=== PATIENT | female | born 1955 | race Caucasian/White ===

== ENCOUNTER → 2018-10-12 | Outpatient (CLI) | payer BC, OTHER ==
[~2018-10-12] MED LIST: ASPIRIN325 PO; CIPRO500 MG PO; FAMCICLOVIR500 MG PO; FLAGYL500 MG PO; HYDROCODONE-AP1 EAC6 PO; LISINOPRIL10 MG PO; ZOLOFT25 MG PO
== END ==
LOC: RAD 07:52
DX: Z12.31 Encounter for screening mammogram for malignant neoplasm of breast (principal)

== ENCOUNTER → 2018-10-17 | Outpatient (CLI) | payer BC | LOC: BC 01:17 | DX: N60.01 Solitary cyst of right breast (principal) ==

== ENCOUNTER → 2019-04-19 | Outpatient (CLI) | payer BC | LOC: ULTRA 14:04 | DX: M79.89 Other specified soft tissue disorders (principal); R60.0 Localized edema ==

== ENCOUNTER → 2019-04-23 | Outpatient (CLI) | payer BC | LOC: RAD 13:14 | DX: M79.672 Pain in left foot (principal); M79.89 Other specified soft tissue disorders ==

== ENCOUNTER → 2019-12-16 | Outpatient (CLI) | payer BC, OTHER | LOC: RAD 08:08 | DX: N64.4 Mastodynia (principal); Z87.898 Personal history of other specified conditions ==

== ENCOUNTER → 2021-02-04 | Outpatient (CLI) | payer BC, OTHER ==
--- NOTE | 2021-02-04 11:04 | 2DMMODE ---
[facility] [place] [address] 2 D/M-MODE ECHOCARDIOGRAM Name: VIRI COREY Room #: REG [facility]#: [id number] Admission: 02/04/21 Attend Phys: Audelia Virk MD Discharge: Date of : 55 Report #: [id number] THIS REPORT FOR: cc: William Barrera MD, Neal A. MD Lundgren, Craig H. MD [facility] ~ APPROVED REPORT Study performed: 02/04/2021 10:01:08 EXAM: Comprehensive 2D, Doppler, and color-flow Echocardiogram Patient Location: Out-Patient Status: routine BSA: 1.79 HR: 56 bpm BP: 100/50 mmHg Rhythm: NSR Other Information Study Quality: Fair Technically limited study due to off axis windows/body habitus. Indications Non-ischemic cardiomyopathy. Hx: HTN. 2D Dimensions RVDd: 27.98 mm IVSd: 7.71 (7-11mm) LVOT Diam: 21.35 (18-24mm) LVDd: 59.06 mm PWd: 8.61 (7-11mm) Ascending Ao: 35.53 (22-36mm) LVDs: 44.75 (25-40mm) Left Atrium: 30.04 (27-40mm) Aortic Root: 28.06 mm Volumes Left Atrial Volume (Systole) Single Plane 4CH: 66.44 mL Aortic Valve AoV Peak Bayron.: 2.07 m/s AO Peak Gr.: 17.20 mmHg LVOT Max P.95 mmHg [facility] [address] [place] [address] 2 D/M-MODE ECHOCARDIOGRAM Name: VIRI COREY Room #: REG [facility]#: [id number] Admission: 02/04/21 Attend Phys: Audelia Virk, Discharge: Date of : 55 Report #: [id number] AO Mean Gr.: 9.44 mmHg AO V2 Mean: 1.46 m/s LVOT Max V: 0.99 m/s AO V2 VTI: 47.11 cm BEKCI Vmax: 1.71 cm2 Mitral Valve E/A Ratio: 1.8 MV Decel. Time: 156.03 ms MV E Max Bayron.: 0.82 m/s MV A Bayron.: 0.46 m/s MV PHT: 45.25 ms IVRT: 106.11 ms Pulmonary Valve PV Peak Bayron.: 0.89 m/s PV Peak Gr.: 3.19 mmHg Pulmonary Vein P Vein S: 0.53 m/s P Vein A: 0.29 m/s P Vein D: 0.63 m/s P Vein A Dur.: 101.5 msec P Vein S/D Ratio: 0.84 Tricuspid Valve RAP Estimate: 10.00 mmHg Left Ventricle Left ventricle is mildly dilated. There is normal left ventricular wall thickness. Left ventricular systolic function is at the lower limits normal LVEF 45-50%. Moderate diastolic dysfunction. Right Ventricle The right ventricle is normal size. The right ventricular systolic function is normal. Atria The left atrium size is normal. The right atrium size is normal. Aortic Valve The aortic valve is mildly sclerotic. Very mild stenosis. Trace aortic regurgitation. Calculated aortic valve area is 1.7 cm2 (Peak gradient of 17 mmHg, mean pressure gradient of 9 mmHg). Mitral Valve The mitral valve is normal in structure. There is no mitral valve regurgitation [facility] [place] [address] 2 D/M-MODE ECHOCARDIOGRAM Name: COREYVIRI Room #: REG CL [facility]#: [id number] Admission: 02/04/21 Attend Phys: Audelia Virk, Discharge: Date of : 55 Report #: [id number] Tricuspid Valve The tricuspid valve is normal in structure. There is no tricuspid valve regurgitation noted. Unable to assess PA pressure. Pulmonic Valve The pulmonary valve is normal in structure. There is no pulmonic valvular regurgitation. Great Vessels The aortic root is normal in size. The ascending aorta is normal in size. IVC is normal in size and collapses <50% with inspiration. Pericardium There is no pericardial effusion. <Conclusion> Technically difficult study Left ventricular systolic function is at the lower limits normal LVEF 45-50%. Moderate diastolic dysfunction. The aortic valve is mildly sclerotic. Very mild stenosis. Trace insufficiency Calculated aortic valve area is 1.7 cm2 (Peak gradient of 17 mmHg, mean pressure gradient of 9 mmHg). The mitral valve is normal in structure. No mitral insufficiency Unable to assess pulmonary artery pressure. There is no pericardial effusion. <ELECTRONICALLY SIGNED> By: Evan Brown MD, FACC 02/04/21 1103 1103 1103 Evan Brown MD, FACC /INF
== END ==
LOC: BC 12-23 12:54 → CV 09:28
PROVIDERS: ATTEND Internal Medicine Cardiovascular Disease
DX: Z12.31 Encounter for screening mammogram for malignant neoplasm of breast (principal); I42.8 Other cardiomyopathies; M79.89 Other specified soft tissue disorders; I35.0 Nonrheumatic aortic (valve) stenosis

== ENCOUNTER → 2021-02-10 | Outpatient (CLI) | payer BC, OTHER | LOC: ULTRA 14:42 | PROVIDERS: ATTEND Family Medicine | DX: N63.10 Unspecified lump in the right breast, unspecified quadrant (principal); N63.12 Unspecified lump in the right breast, upper inner quadrant; N63.13 Unspecified lump in the right breast, lower outer quadrant ==

== ENCOUNTER → 2021-08-16 | Outpatient (CLI) | payer OTHER | LOC: BC 09:50 | PROVIDERS: ATTEND Nurse Practitioner | DX: R92.1 Mammographic calcification found on diagnostic imaging of breast (principal); R92.8 Other abnormal and inconclusive findings on diagnostic imaging of breast ==